=== PATIENT | female | born 1990 | race Caucasian/White ===

== ENCOUNTER 2017-07-16 08:00 | Inpatient (IN) | payer BC ==
[~2017-07-16] VITALS: Ht 162.6 cm; Wt 81.8 kg
[2017-07-16 08:10] VITALS: BP 132/80
[2017-07-16] MEDS ORDERED: OXYcodone/APAP 5/325MG TABLET ONE (08:32)
[2017-07-16] MEDS ORDERED: IBUPROFEN 600 MG TABLET ONE (08:32)
[2017-07-16] MEDS ORDERED: OXYTOCIN 30U/ 0.9% NaCL 500ML 500 ML IV ONE (08:34)
[2017-07-16] MEDS ORDERED: LACTATED RINGERS 1,000 ML IV SCH (08:34)
[2017-07-16] MEDS ORDERED: NEWBORN KIT ONE (08:34)
[2017-07-16] MEDS ORDERED: OXYTOCIN 30U/ 0.9% NaCL 500ML 500 ML ONE (08:34)
[2017-07-16] MEDS: OXYTOCIN 30U/ 0.9% NaCL 500ML 500 ML IV SCH ×2 (08:37→18:37)
[2017-07-16] MEDS: IBUPROFEN 600 MG TABLET PO PRN ×2 (08:44→19:57)
[2017-07-16] MEDS: OXYcodone/APAP 5/325MG TABLET PO PRN ×3 (08:45→19:57)
[2017-07-16] MEDS ORDERED: OXYcodone/APAP 5/325MG TABLET PO PRN (09:00)
[2017-07-16] MEDS ORDERED: ONDANSETRON 2MG/ML, 2ML IVPush PRN (09:00)
[2017-07-16] MEDS ORDERED: ACETAMINOPHEN 325 MG TABLET PO PRN (09:00)
[2017-07-16] MEDS ORDERED: OXYTOCIN 10 UNITS/ML, 1ML IM ONE (09:00)
[2017-07-16] MEDS: PRENATAL VIT/IRON/FA 1 EACH TABLET PO SCH (09:00)
[2017-07-16] MEDS ORDERED: CALCIUM CARBONATE 500 MG TAB.CHEW PO PRN (09:00)
[2017-07-16] MEDS ORDERED: MISOPROSTOL 200 MCG TABLET PR PRN (09:00)
[2017-07-16 09:03] LABS: BASOPHILS # (AUTO) 0.05 x10^3/uL (0-0.1); BASOPHILS % (AUTO) 0 % (0-1); EOSINOPHILS # (AUTO) 0.08 x10^3/uL (0-0.4); EOSINOPHILS % (AUTO) 1 % (1-7); LYMPHOCYTES # (AUTO) 2.02 x10^3/uL (1-3.4); LYMPHOCYTES % (AUTO) 16 % (22-44); MD NO; MEAN CORPUSCULAR HEMOGLOBIN 30.9 pg (27.0-34.8); MEAN CORPUSCULAR HGB CONC 33.2 g/dL (32.4-35.8); MONOCYTES # (AUTO) 0.73 x10^3/uL (0.2-0.8); MONOCYTES % (AUTO) 6 % (2-9); NEUTROPHILS # (AUTO) 10.18 x10^3/uL (1.8-6.8); NEUTROPHILS % (AUTO) 78 % (42-75); PLATELET COUNT 228 x10^3/uL (130-400); RED BLOOD COUNT 4.48 x10^6/uL (3.82-5.3); RED CELL DISTRIBUTION WIDTH 13.5 % (9.6-15.2)
[2017-07-16] MEDS ORDERED: MISOPROSTOL 200 MCG TABLET ONE (09:37)
[2017-07-16 10:20] VITALS: BP 109/58
[2017-07-16 13:16] VITALS: BP 114/70
[2017-07-16 16:42] LABS: BASOPHILS % (AUTO) 1 % (0-1); EOSINOPHILS # (AUTO) 0.09 x10^3/uL (0-0.4); EOSINOPHILS % (AUTO) 1 % (1-7); LYMPHOCYTES # (AUTO) 2.24 x10^3/uL (1-3.4); LYMPHOCYTES % (AUTO) 18 % (22-44); MD NO; MEAN CORPUSCULAR HEMOGLOBIN 31.2 pg (27.0-34.8); MEAN CORPUSCULAR HGB CONC 33.6 g/dL (32.4-35.8); MEAN CORPUSCULAR VOLUME 92.9 fL (80-100); MEAN PLATELET VOLUME 9.5 fL (7.4-10.4); MONOCYTES # (AUTO) 0.81 x10^3/uL (0.2-0.8); MONOCYTES % (AUTO) 7 % (2-9); NEUTROPHILS # (AUTO) 9.28 x10^3/uL (1.8-6.8); NEUTROPHILS % (AUTO) 74 % (42-75); PLATELET COUNT 244 x10^3/uL (130-400); RED BLOOD COUNT 4.36 x10^6/uL (3.82-5.3); RED CELL DISTRIBUTION WIDTH 13.6 % (9.6-15.2)
[2017-07-16 16:49] VITALS: BP 111/78
[2017-07-16] MEDS: DOCUSATE 100 MG CAPSULE PO PRN (19:57)
[2017-07-16 20:00] VITALS: BP 120/69
[2017-07-17 00:10] VITALS: BP 106/50
[2017-07-17] MEDS: IBUPROFEN 600 MG TABLET PO PRN ×2 (02:21→08:31)
[2017-07-17] MEDS: OXYcodone/APAP 5/325MG TABLET PO PRN (02:22)
[2017-07-17] MEDS: OXYTOCIN 30U/ 0.9% NaCL 500ML 500 ML IV SCH (04:37)
[2017-07-17] MEDS ORDERED: IBUP-1222 PO (07:29)
[2017-07-17] MEDS ORDERED: OXYC-302 PO (07:29)
[2017-07-17 08:05] VITALS: BP 108/66
[2017-07-17] MEDS: PRENATAL VIT/IRON/FA 1 EACH TABLET PO SCH (08:30)
[2017-07-17] MEDS: DOCUSATE 100 MG CAPSULE PO PRN (08:30)
== END 2017-07-17 13:00 | disposition home or self-care (01) | DRG 775 ==
LOC: LDIP 08:00 → 2NW 10:28
PROVIDERS: ADMIT Obstetrics & Gynecology; ATTEND Obstetrics & Gynecology
PROC: 10E0XZZ Delivery of Products of Conception, External Approach (ICD-10-PCS; principal; 2017-07-16)
DX: O80 Encounter for full-term uncomplicated delivery (principal); Z37.0 Single live birth; Z80.3 Family history of malignant neoplasm of breast; Z3A.38 38 weeks gestation of pregnancy
CPT/HCPCS: 36415; 85025; 86850; 86900; J2590

== ENCOUNTER 2019-11-24 03:23 | Inpatient (IN) | payer BC ==
[~2019-11-24] VITALS: Ht 162.6 cm; Wt 81.8 kg
[~2019-11-24 03:23] MED LIST: IBUP-1222 PO; OXYC-302 PO
[2019-11-24 03:24] VITALS: BP 124/65
[2019-11-24] MEDS: OXYTOCIN 30U/ 0.9% NaCL 500ML 500 ML IV SCH ×3 (03:24→13:42)
[2019-11-24] MEDS: LACTATED RINGERS 1,000 ML IV SCH ×3 (03:24→23:18)
[2019-11-24] MEDS ORDERED: MISOPROSTOL 200 MCG TABLET ONE (03:37)
[2019-11-24] MEDS ORDERED: OXYTOCIN 30U/ 0.9% NaCL 500ML 500 ML ONE ×2 (03:37→04:31)
[2019-11-24] MEDS ORDERED: FENTANYL PF 100 MCG/2ML ONE (03:37)
[2019-11-24] MEDS ORDERED: LIDOCAINE 1%, 20ML ONE (03:37)
[2019-11-24] MEDS ORDERED: FENTANYL PF 100 MCG/2ML IV ONE (03:40)
[2019-11-24] MEDS ORDERED: NEWBORN KIT ONE (03:49)
[2019-11-24] MEDS ORDERED: SIMETHICONE 80 MG CHEW TAB PO PRN (04:00)
[2019-11-24] MEDS ORDERED: MISOPROSTOL 200 MCG TABLET PR PRN (04:00)
[2019-11-24] MEDS ORDERED: OXYcodone/APAP 5/325MG TABLET PO PRN ×2 (04:00)
[2019-11-24] MEDS ORDERED: METHYLERGONOVINE 0.2 MG/ML IM PRN (04:00)
[2019-11-24] MEDS ORDERED: CARBOPROST TROMETHAMINE 250 MCG/ML, 1ML IM PRN (04:00)
[2019-11-24] MEDS ORDERED: PREN1TAB60 PO (05:02)
[2019-11-24 05:45] VITALS: BP 110/64
[2019-11-24] MEDS: DOCUSATE 100 MG CAPSULE PO PRN (07:12)
[2019-11-24] MEDS: IBUPROFEN 800 MG TABLET PO PRN (07:13)
[2019-11-24] MEDS: PRENATAL VIT/IRON/FA 1 EACH TABLET PO SCH (07:14)
[2019-11-24 07:59] VITALS: BP 114/66
[2019-11-24 12:06] LABS: BASOPHILS # (AUTO) 0.14 x10^3/uL (0-0.1); BASOPHILS % (AUTO) 1 % (0-1); EOSINOPHILS # (AUTO) 0.07 x10^3/uL (0-0.4); EOSINOPHILS % (AUTO) 1 % (1-7); LYMPHOCYTES # (AUTO) 2.05 x10^3/uL (1-3.4); LYMPHOCYTES % (AUTO) 14 % (22-44); MD NO; MEAN CORPUSCULAR HEMOGLOBIN 31.6 pg (27.0-34.8); MEAN CORPUSCULAR HGB CONC 33.9 g/dL (32.4-35.8); MEAN CORPUSCULAR VOLUME 93.2 fL (80-100); MEAN PLATELET VOLUME 9.2 fL (7.4-10.4); MONOCYTES # (AUTO) 0.68 x10^3/uL (0.2-0.8); MONOCYTES % (AUTO) 5 % (2-9); NEUTROPHILS # (AUTO) 11.49 x10^3/uL (1.8-6.8); NEUTROPHILS % (AUTO) 80 % (42-75); PLATELET COUNT 197 x10^3/uL (130-400); RED CELL DISTRIBUTION WIDTH 13.2 % (9.6-15.2)
[2019-11-24 12:30] VITALS: BP 111/63
[2019-11-24 20:00] VITALS: BP 111/69
[2019-11-25 00:30] VITALS: BP 123/64
[2019-11-25] MEDS: IBUPROFEN 800 MG TABLET PO PRN ×2 (00:33→07:44)
[2019-11-25 07:27] VITALS: BP 114/72
[2019-11-25] MEDS: DOCUSATE 100 MG CAPSULE PO PRN (07:40)
[2019-11-25] MEDS: PRENATAL VIT/IRON/FA 1 EACH TABLET PO SCH (07:40)
[2019-11-25] MEDS: LACTATED RINGERS 1,000 ML IV SCH (09:18)
[2019-11-25] MEDS: OXYTOCIN 30U/ 0.9% NaCL 500ML 500 ML IV SCH (09:53)
== END 2019-11-25 13:20 | disposition home or self-care (01) | DRG 776 ==
LOC: LDIP 03:23 → 2NW 05:27
PROVIDERS: ADMIT Obstetrics & Gynecology; ATTEND Obstetrics & Gynecology
DX: O90.89 Other complications of the puerperium, not elsewhere classified (principal)
CPT/HCPCS: 36415; 85025; 86592; 86850; 86900; G0378; J3010; J2590; J7120